=== PATIENT | male | born 1940 | race Caucasian/White ===

== ENCOUNTER 2018-09-05 08:34 | Outpatient (CLI) | payer MEDICARE, BC ==
[2018-09-05] VITALS (10 sets, daily range): BP systolic 76–161; BP diastolic 52–88
[~2018-09-05 08:34] MED LIST: LANTUS SQ; METF-438 PO; [UNRECOGNIZED DRUG - CODE]
== END 2018-09-05 23:59 | disposition home or self-care (01) ==
LOC: CARD DIAG 08:34
PROVIDERS: ATTEND Nurse Practitioner Family
DX: R42 Dizziness and giddiness (principal); E11.9 Type 2 diabetes mellitus without complications; Z87.891 Personal history of nicotine dependence; Z88.7 Allergy status to serum and vaccine
CPT/HCPCS: 93660

== ENCOUNTER 2021-01-24 08:17 | Day surgery (SDC) | payer MEDICARE, BC ==
[~2021-01-24] VITALS: Ht 190.5 cm; Wt 103.5 kg
[2021-01-24 08:43] VITALS: BP 122/76
[2021-01-24] MEDS ORDERED: albumin 25% 100mL bottle x 1 IV PRN (08:45)
[2021-01-24] MEDS ORDERED: APIX2.5T PO (08:45)
[2021-01-24] MEDS ORDERED: FURO-149 PO (08:45)
[2021-01-24] MEDS ORDERED: PRED5TAB PO (08:46)
[2021-01-24 09:48] VITALS: BP 120/73
[2021-01-24 10:00] VITALS: BP 121/70
[2021-01-24 10:15] VITALS: BP 113/71
[2021-01-24 10:30] VITALS: BP 111/74
== END 2021-01-24 10:40 | disposition home or self-care (01) ==
LOC: SSTAY O 08:17
PROVIDERS: ATTEND Preventive Medicine Aerospace Medicine
DX: J90 Pleural effusion, not elsewhere classified (principal); I25.10 Atherosclerotic heart disease of native coronary artery without angina pectoris; E11.9 Type 2 diabetes mellitus without complications; I48.91 Unspecified atrial fibrillation; E03.9 Hypothyroidism, unspecified; Z86.718 Personal history of other venous thrombosis and embolism; Z95.1 Presence of aortocoronary bypass graft; Z98.890 Other specified postprocedural states; Z91.09 Other allergy status, other than to drugs and biological substances; Z79.899 Other long term (current) drug therapy; Z79.4 Long term (current) use of insulin
CPT/HCPCS: 32555; 87205; 88108; 88305